=== PATIENT | male | born 1965 | race Caucasian/White ===

== ENCOUNTER 2020-03-27 15:17 | Outpatient (CLI) | payer OTHER, SELFPAY ==
--- NOTE | ~2020-03-27 | XR_ITS ---
XR shoulder LT min 2V 03/27/2020 15:46 Indication: Left shoulder pain after recent injury Procedure: 4 views left shoulder Comparison: No prior studies for comparison. Findings: There is mild osteoarthritis of the acromioclavicular and glenohumeral joints. No fracture or traumatic malalignment. No focal soft tissue abnormality. No foreign bodies. Impression: 1: Mild polyarticular osteoarthritis of the left shoulder. Reviewed, dictated and finalized at location A. Impression: 1: Mild polyarticular osteoarthritis of the left shoulder.
== END 2020-03-27 15:18 | disposition home or self-care (01) ==
PROVIDERS: PCP Family Medicine; Visit Provider Family Medicine
DX: M19.012 Primary osteoarthritis, left shoulder (principal)
CPT/HCPCS: 73030

== ENCOUNTER 2020-05-07 14:37 | Outpatient (CLI) | payer OTHER, SELFPAY ==
--- NOTE | ~2020-05-07 | MR_ITS ---
EXAMINATION: MR shoulder LT wo con DATE: 05/07/2020 15:15 INDICATION: Left shoulder pain TECHNIQUE: Magnetic resonance imaging (MRI) of the left shoulder was performed without intravenous co ntrast. Sequences included axial PD-weighted FS FSE, coronal oblique PD-weighted FS FSE, coronal obli que T2-weighted FS FSE, sagittal PD-weighted FS FSE, and sagittal T1-weighted SE. COMPARISON: Left shoulder radiographs dated 03/27/2020 FINDINGS: Coracoacromial arch: The acromion undersurface is curved in morphology (type II) with lateral downsloping and small bruce inferior subacromial spur. The coracoacromial ligament is normal. Moderate acromioclavicular osteoart hritis with inferior directed osteophytes which remain separate from the underlying supraspinatus mus hitesh and tendon by a thin intervening fat pad. Rotator cuff: Mild supraspinatus tendinopathy with small full-thickness tear beginning at the superior facet footpl ate which measures 8 mm AP and approximately 1.5 cm medial to lateral. Mild infraspinatus tendinopath y without discrete tear. The teres minor tendon is normal. Mild tendinopathy at the cephalad aspect o f the subscapularis tendon with tiny partial-thickness intrasubstance tear along the cephalad aspect of the lesser tuberosity footplate. Normal rotator cuff muscle bulk and signal. Biceps tendon, glenoid labrum and glenohumeral cartilage: Mild tendinopathy and longitudinal split tearing of the intra-articular and extra articular long head biceps tendon. There is likely degenerative tearing along the peripheral free edge of the 10:00-11:0 0 position of the posterior superior glenoid labrum. Glenohumeral cartilage is normal. Fluid: Physiologic amount of fluid in the glenohumeral joint space. No intra-articular loose osteochondral b odies. Moderate amount of fluid in the subacromial/subdeltoid and subcoracoid bursae likely represent ing extension of fluid from the glenohumeral joint space through the full-thickness rotator cuff tear although differential would include bursitis. Fluid in the long head biceps tendon sheath which coul d be related to bicipital tenosynovitis. Bones: Bone alignment is normal. No fracture or pathologic marrow replacing process. Likely degenerative mil d cystic change at the junction middle and posterior facets of the greater tuberosity. IMPRESSION: 1. Mild tendinopathy of the subscapularis, supraspinatus and infraspinatus tendons with small full-th ickness tear at the distal supraspinatus tendon. 2. Mild degenerative tearing along the free edge of the posterior superior glenoid labrum. 3. Mild bicipital tendinopathy with longitudinal split tearing possible associated mild tenosynovitis . 4. Moderate acromioclavicular osteoarthritis. 5. Moderate amount of fluid in the subacromial/subdeltoid and subcoracoid bursae most likely decompre ssion glenohumeral joint fluid through the full-thickness rotator cuff tear although differential wou ld include bursitis. Reviewed, dictated and finalized at location A. IMPRESSION: 1. Mild tendinopathy of the subscapularis, supraspinatus and infraspinatus tend ons with small full-thickness tear at the distal supraspinatus tendon. 2. Mild degenerative tearing along the free edge of the posterior superior jasmin oid labrum. 3. Mild bicipital tendinopathy with longitudinal split tearing possible associa kwaku mild tenosynovitis. 4. Moderate acromioclavicular osteoarthritis. 5. Moderate amount of fluid in the subacromial/subdeltoid and subcoracoid bursa e most likely decompression glenohumeral joint fluid through the full-thickness rotator cuff tear although differential would include bursitis.
== END 2020-05-07 14:38 ==
PROVIDERS: PCP Family Medicine; Visit Provider Nurse Practitioner Family
DX: M19.012 Primary osteoarthritis, left shoulder (principal); M75.21 Bicipital tendinitis, right shoulder
CPT/HCPCS: 73221

== ENCOUNTER 2020-06-18 14:32 | Outpatient (CLI) | payer OTHER, SELFPAY ==
--- NOTE | 2020-06-18 14:35 | ECG_ITS ---
Measurements Intervals [place] Rate: 67 P: 42 MS: 167 QRS: 37 QRSD: 109 T: 33 QT: 379 QTc: 401 Interpretive Statements SINUS RHYTHM NORMAL ECG Electronically Signed On 06-18-2020 15:11:14 CDT by Mj Alcazar D.O.
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
== END 2020-06-18 14:33 | disposition home or self-care (01) ==
LOC: ANHSURGERY 14:35
PROVIDERS: PCP Family Medicine; Visit Provider Orthopaedic Surgery
DX: I10 Essential (primary) hypertension (principal)
CPT/HCPCS: 93005

== ENCOUNTER 2020-06-23 00:17 | Outpatient (CLI) | payer OTHER, SELFPAY ==
[2020-06-23 19:34] LABS: SARS-CoV-2 RNA PCR Negative
== END 2020-06-23 00:18 | disposition home or self-care (01) ==
LOC: ANHCOVIDDT 00:18
PROVIDERS: PCP Family Medicine; Visit Provider Orthopaedic Surgery
DX: Z01.812 Encounter for preprocedural laboratory examination (principal); Z20.828 Contact with and (suspected) exposure to other viral communicable diseases
CPT/HCPCS: 87635; C9803; U0003

== ENCOUNTER 2020-06-25 02:06 | Day surgery (SDC) | payer OTHER, SELFPAY ==
[2020-06-16 13:18] VITALS: BMI 27.0
[2020-06-25] VITALS (8 sets, daily range): BP systolic 140–165; BP diastolic 83–99; PULSE 63–87; RESP 14–16; TEMP 36.3–36.6; O2SAT 94–100
--- NOTE | 2020-06-25 07:27 | WPDHPUPDATE1 ---
History and Physical Update Update Date/Time: 06/25/20 07:27 History and Physical has been reviewed, including an updated exam of the patient. There are NO changes in the patient's condition. Risks, benefits, and alternatives have been discussed and questions answered. Patient agrees to proceed with procedure.
[2020-06-25] MEDS: CELECOXIB 200 MG CAPSULE PO (09:10)
[2020-06-25] MEDS: ACETAMINOPHEN 500 MG TABLET 1000 MG PO (09:10)
[2020-06-25] MEDS: LACTATED RINGERS 1,000 ML 30 ML IV CONT ×2 (09:40→12:54)
--- NOTE | 2020-06-25 10:16 | WPDANESEPP ---
[facility] - Eval Pre Procedure Procedure: Operation Date: 06/25/20 10:30 Proposed Procedures p Left Open Rotator Cuff Repair With Distal Clavicle Excision - Juice Anderson MD Date/Time: 06/25/20 10:16 Pre Op Diagnosis: Acute Left Rotator Cuff Tear,L Should AC Marely MAYORGA Patient Data Age: 55 Gender: M Height: 6 ft 1 in Weight: 91.5 kg Last Vital Signs Temp 97.8 F 06/25/20 08:56 Pulse 63 06/25/20 08:56 Resp 14 06/25/20 08:56 BP 140/83 06/25/20 08:56 Pulse Ox 98 06/25/20 08:56 Allergies Allergy/AdvReac Type Severity Reaction Status Date / Time shellfish derived Allergy Severe REDNESS, Verified 06/25/20 09:06 THROAT TIGHTNESS Home Medications Medication Instructions Recorded Confirmed Type omeprazole magnesium 20 mg 20 mg PO DAILY 03/27/20 06/25/20 History tablet,delayed release lisinopril 20 mg tablet 20 mg PO DAILY #30 tablet 05/16/20 06/25/20 Rx chlorhexidine gluconate 4 % 1 applic TOPICAL ONCE #237 ml 05/20/20 06/25/20 Rx topical liquid sertraline 50 mg tablet 75 mg PO DAILY #45 tablet 05/30/20 06/25/20 Rx aspirin 81 mg PO DAILY 06/16/20 06/25/20 History Patient hx anesthesia problems: none Family hx anesthesia problems: none PMFSH Past Medical History Medical History Anxiety and depression Asthma Benign essential HTN Calcium nephrolithiasis Cervical spondylosis Elevated BP without diagnosis of hypertension GERD (gastroesophageal reflux disease) Injury of left shoulder Marijuana abuse MDD (major depressive disorder), recurrent episode, moderate Rotator cuff tear Shoulder pain, left Smoker Tendinopathy of left shoulder Surgical History Surgical History H/O hernia repair Hx of tonsillectomy Social History Social History Smoking packs per day: 1 Smoking cigarettes per day: 20.0 Years smoked: 20 Smoking pack-years: 20.00 Smoking status: Never smoker Tobacco type: cigarettes Second hand tobacco smoke exposure: No Smoking end date: 10/31/09 Alcohol intake: never Substance use: current Substance use type: marijuana Last use: 06/16/20 Additional living arrangements comments: pt lives with and children Gender identity (if verbalized by the patient): Male Spiritual care concerns: No Exam Day of Procedure 06/25/20 10:16 Patient weight: overweight Airway: Mallampati scale class II Neurological: alert and oriented Other findings: NSR VR 67
--- NOTE | 2020-06-25 10:27 | WPDANESEFPP ---
Anes - Eval Final PreProcedure Day of Procedure 06/25/20 10:27 Patient weight: overweight Heart: regular rate and rhythm Lungs: decreased breath sounds Airway: Mallampati scale class II Neurological: alert and oriented Last oral intake: >/= 8 hours ASA classification: III Emergent: no Anesthetic plan: proceed Anesthesia type and monitoring: general ETT and standard monitoring Informed Consent: The patient's anesthetic plan and its attendant risks and benefits were discussed with the patient/family/POA. Questions were solicited and answers provided to the satisfaction of the patient/family/POA.
[2020-06-25] MEDS: ceFAZolin 2 GM/D5W 50 ML 2 GM/50 ML BAG IVPB (10:39)
--- NOTE | 2020-06-25 10:42 | WPDANESPNB ---
Anes - Peripheral Nerve Block Date/Time: 06/25/20 10:42 I have discussed with the patient/family/POA the placement of a peripheral nerve block for post-operative pain management, including associated risks, benefits, complications, and side effects. Alternative methods of post-operative analgesia were detailed. Questions were solicited and answers provided to the satisfaction of the patient/family/POA. Time-Out: A pre-procedural Time-Out was completed immediately before starting the procedure and confirmed: Patient Identification, Site, Procedure, Patient Position and the Availability of Requisite Equipment. Clinical Indications: Acute post-operative pain management requested by the operative surgeon. Nerve Block Insertion Note Anes-nerve block: interscalene left Needle: 22 gauge, stimulating, insulated echogenic needle. Needle length: 50 mm Technique: nerve stimulation lost at (mA) (0.3) and ultrasound Technique comment: mid2mg [id number] Injectate: bupivacaine 0.5% with epi 5 mcg/ml (30ml) Observations: tolerated well Complications: none Procedure start time:: 1028 Procedure end time:: 1034
--- NOTE | 2020-06-25 12:39 | PM.OP ---
Procedure Note - Brief Procedure Note - Brief Date of procedure: 06/25/20 Pre-op diagnosis: Acute Left Rotator Cuff Tear,L Should AC Marely MAYORGA Post-op diagnosis: same Procedure performed: LEFT ROT CUFF REPAIR WITH DCE Anesthesia: GETA Surgeon: Juice Anderson MD Estimated blood loss (mL): 20 Complications: No immediate complications Condition: stable Disposition: PACU
--- NOTE | 2020-06-25 14:35 | SUR.PHASEII ---
PT ASSISTED WITH DRESSING. AWAITING RIDE.
--- NOTE | 2020-06-25 18:57 | OP_ITS ---
DATE OF PROCEDURE: 06/25/2020 PREOPERATIVE DIAGNOSES: Left rotator cuff tear and acromioclavicular joint degenerative joint disease. PREOPERATIVE DIAGNOSES: Left rotator cuff tear and acromioclavicular joint degenerative joint disease. PROCEDURE: Left rotator cuff repair with distal clavicle excision. ANESTHESIA: General. COMPLICATIONS: None. INDICATIONS: This is a 55-year-old male with severe pain to the left shoulder and weakness. He was diagnosed with a rotator cuff tear and AC joint DJD. He was indicated for left rotator cuff repair and distal clavicle excision. DESCRIPTION OF PROCEDURE: The patient was taken to the operating room in stable condition, placed in the supine position. General anesthesia was induced and he was placed in beach chair position. The left upper extremity was prepped and draped sterilely from the fingers to the axillary and cervical region. Incision was made in between the anterolateral acromion and the AC joint down through the subcutaneous tissues. The AC joint was identified and the capsule was incised. There was severe arthrosis to the AC joint. 0.5 cm of distal clavicle then was removed from the AC joint. Osteophytes were removed from the undersurface of the AC joint as well. The wound was irrigated thoroughly and the capsule was approximated with #0 Vicryl suture. Next, the incision continued through a mini open incision through the deltoid muscle entering the subacromial space. There was clear fluid coming from the subacromial space and there was an obvious tear to the rotator cuff. The tear was large measuring approximately greater than a centimeter in the AP plane, but it was not retracted. The cuff tear was debrided, the greater tuberosity was debrided and then 2 Arthrex 5.5 suture anchors were placed in the greater tuberosity and the tear was then repaired. The repair was excellent and was very stable. The wound was irrigated thoroughly and then the deltoid muscle was repaired with #2 nonabsorbable type suture and then with 0 Vicryl as well. The subcutaneous tissues were approximated with 2-0 Vicryl and then a 3-0 Quill was used to approximate the subcuticular region. Dermabond was placed, Steri-Strips and a sterile dressing was applied. The patient was placed in a shoulder immobilizer, and he was extubated and sent to recovery. D I MT: Sofia
== END 2020-06-25 14:48 | disposition home or self-care (01) ==
PROVIDERS: PCP Family Medicine; Visit Provider Orthopaedic Surgery
PROC: (CPT 23420; principal; 2020-06-25 10:30)
DX: S46.012A Strain of muscle(s) and tendon(s) of the rotator cuff of left shoulder, initial encounter (principal); M19.012 Primary osteoarthritis, left shoulder; G89.18 Other acute postprocedural pain; I10 Essential (primary) hypertension; F32.9 Major depressive disorder, single episode, unspecified; F17.210 Nicotine dependence, cigarettes, uncomplicated; Z79.82 Long term (current) use of aspirin; Z79.899 Other long term (current) drug therapy; V19.3XXA Pedal cyclist (driver) (passenger) injured in unspecified nontraffic accident, initial encounter; Y93.55 Activity, bike riding
CPT/HCPCS: 23410; 23120; 64415; A9270; C1713; J0690; J1100; J1170; J2250; J2405; J2704; J3010; J7120

== ENCOUNTER 2020-10-10 02:15 | Outpatient (CLI) | payer OTHER, SELFPAY ==
[2020-10-10 18:46] LABS: SARS-CoV-2 RNA PCR Negative
== END 2020-10-10 02:16 | disposition home or self-care (01) ==
LOC: ANHCOVIDDT 02:15
PROVIDERS: PCP Family Medicine; Visit Provider Internal Medicine Gastroenterology
DX: Z01.818 Encounter for other preprocedural examination (principal); Z20.828 Contact with and (suspected) exposure to other viral communicable diseases
CPT/HCPCS: 87635; C9803; U0003

== ENCOUNTER 2020-10-13 01:20 | Day surgery (SDC) | payer OTHER, SELFPAY ==
[2020-10-08 13:30] VITALS: BMI 26.0
[2020-10-13 07:13] VITALS: BP 143/89; PULSE 58; RESP 20; TEMP 36.3; O2SAT 96; BMI 26.3
[2020-10-13] MEDS: LACTATED RINGERS 1,000 ML 150 ML IV CONT (07:26)
--- NOTE | 2020-10-13 07:37 | WPDANESEPPF ---
Anes - Initial Pre Proc Eval Procedure: Operation Date: 10/13/20 08:30 Proposed Procedures p Screening Colonoscopy - Asif Patterson MD Date/Time: 10/13/20 07:37 Surgeon: Asif Patterson MD Pre Op Diagnosis: Neoplasm Screening Patient Data Age: 55 Gender: M Height: 6 ft 2 in Weight: 93.1 kg Last Vital Signs Temp 36.3 C L 10/13/20 07:13 Pulse 58 L 10/13/20 07:13 Resp 20 10/13/20 07:13 BP 143/89 H 10/13/20 07:13 Pulse Ox 96 10/13/20 07:13 Allergies Allergy/AdvReac Type Severity Reaction Status Date / Time shellfish derived Allergy Severe REDNESS, Verified 10/13/20 07:12 THROAT TIGHTNESS Home Medications Medication Instructions Recorded Confirmed Type omeprazole magnesium 20 mg 20 mg PO DAILY 03/27/20 10/08/20 History tablet,delayed release lisinopril 20 mg tablet 20 mg PO DAILY #90 tablet 08/03/20 10/08/20 Rx sertraline 50 mg tablet 75 mg PO DAILY #45 tablet 09/05/20 10/08/20 Rx Patient hx anesthesia problems: none Family hx anesthesia problems: none PMFSH Past Medical History Medical History Anxiety Anxiety and depression Arthritis Asthma Benign essential HTN Calcium nephrolithiasis Cervical spondylosis Chronic headaches Depression Elevated BP without diagnosis of hypertension Food allergy GERD (gastroesophageal reflux disease) High cholesterol Hypertension Injury of left shoulder Latex allergy Marijuana abuse MDD (major depressive disorder), recurrent episode, moderate Rotator cuff tear Seasonal allergies Shoulder pain, left Smoker Tendinopathy of left shoulder Vision abnormalities Surgical History Surgical History H/O hernia repair Hx of tonsillectomy Social History Social History Social History: Smoking packs per day: 1 Smoking cigarettes per day: 20.0 Years smoked: 20 Smoking pack-years: 20.00 Smoking status: Former smoker Tobacco type: cigarettes Second hand tobacco smoke exposure: No Smoking end date: 10/31/09 Alcohol intake: never Substance use: current Substance use type: does not use Last use: 06/16/20 Living arrangements: with family Additional living arrangements comments: pt lives with and children Gender identity (if verbalized by the patient): Male Spiritual care concerns: No Anes - Eval Final PreProcedure Day of Procedure 10/13/20 07:37 Patient weight: overweight Heart: regular rate and rhythm Lungs: clear to auscultation Airway: Mallampati scale class II Neurological: alert and oriented Last oral intake: >/= 8 hours ASA classification: III Emergent: no Anesthetic plan: proceed Anesthesia type and monitoring: general GIVS and standard monitoring Informed Consent: The patient's anesthetic plan and its attendant risks and benefits were discussed with the patient/family/POA. Questions were solicited and answers provided to the satisfaction of the patient/family/POA.
--- NOTE | 2020-10-13 08:42 | PM.HPGS ---
History of Present Illness History of Present Illness Consent: Risks, benefits, and alternatives have been discussed and questions answered. Patient agrees to proceed with procedure. Chief complaint: Neoplasm Screening Narrative: Morris Todd is a 55 year old male here for first screening colonoscopy Review of Systems Constitutional: Constitutional: Denies headache(s) and Denies weakness Eyes: Eyes: Denies blurry vision ENT: Reports Normal hearing present, Denies headache(s) and Denies neck pain Cardiovascular: Cardiovascular: Denies chest pain and Denies dyspnea Respiratory: Respiratory: Denies dyspnea Gastrointestinal: Gastrointestinal: Reports no additional gastrointestinal complaints Genitourinary: Genitourinary: Denies dysuria Musculoskeletal: Musculoskeletal: Denies neck pain Integumentary/Breasts: Skin/Breast: Denies dry skin Neurologic: Reports Normal hearing present, Denies headache(s) and Denies weakness Psychiatric: Psychiatric: Denies anxiety Endocrine: Endocrine: Denies change in body appearance Hematologic/Lymphatic: Hematologic/Lymphatic: Denies easy bleeding Allergic/Immunologic: Allergic/Immunologic: Denies urticaria PMFSH Past Medical History Medical History Anxiety Anxiety and depression Arthritis Asthma Benign essential HTN Calcium nephrolithiasis Cervical spondylosis Chronic headaches Depression Elevated BP without diagnosis of hypertension Food allergy GERD (gastroesophageal reflux disease) High cholesterol Hypertension Injury of left shoulder Latex allergy Marijuana abuse MDD (major depressive disorder), recurrent episode, moderate Rotator cuff tear Seasonal allergies Shoulder pain, left Smoker Tendinopathy of left shoulder Vision abnormalities Surgical History Surgical History H/O hernia repair Hx of tonsillectomy Social History Social History Social History: Smoking packs per day: 1 Smoking cigarettes per day: 20.0 Years smoked: 20 Smoking pack-years: 20.00 Smoking status: Former smoker Tobacco type: cigarettes Second hand tobacco smoke exposure: No Smoking end date: 10/31/09 Alcohol intake: never Substance use: current Substance use type: does not use Last use: 06/16/20 Living arrangements: with family Additional living arrangements comments: pt lives with and children Gender identity (if verbalized by the patient): Male Spiritual care concerns: No Meds Home Medications and Allergies Home Medications Medication Instructions Recorded Confirmed Type omeprazole magnesium 20 mg 20 mg PO DAILY 03/27/20 10/08/20 History tablet,delayed release lisinopril 20 mg tablet 20 mg PO DAILY #90 tablet 08/03/20 10/08/20 Rx sertraline 50 mg tablet 75 mg PO DAILY #45 tablet 09/05/20 10/08/20 Rx Allergies Allergy/AdvReac Type Severity Reaction Status Date / Time shellfish derived Allergy Severe REDNESS, Verified 10/13/20 07:12 THROAT TIGHTNESS Vital Signs Vital Signs - 24 hr 10/13/20 07:13 Temperature 97.3 F L Pulse Rate 58 L Respiratory Rate 20 Blood Pressure 143/89 H Pulse Oximetry 96 Exam Const: General: comfortable and no acute distress HENMT: General nose exam: Normal nares present Eyes: General: appearance normal, both eyes and all related structures Neck: Neck: no JVD Resp: Auscultation: clear to auscultation bilaterally Cardio: Rate: regular rate Rhythm: regular rhythm GI: Inspection: non-distended GI Palp: Yes Soft to palpation Skin: General skin exam: normal color Neuro: General: gait normal Speech: normal speech Extrem: General: normal to inspection Psych: Mental Status: mental status grossly normal Assessment and Plan Assessment and plan (1) Colon cancer screening: Code
[2020-10-13 09:11] VITALS: BP 124/73; PULSE 57; RESP 20; O2SAT 97
[2020-10-13 09:21] VITALS: BP 123/80; PULSE 53; RESP 13; O2SAT 98
[2020-10-13 09:31] VITALS: BP 158/83; PULSE 52; RESP 19; O2SAT 99
== END 2020-10-13 09:35 | disposition home or self-care (01) ==
PROVIDERS: PCP Family Medicine; Visit Provider Internal Medicine Gastroenterology
PROC: 0DJD8ZZ Inspection of Lower Intestinal Tract, Via Natural or Artificial Opening Endoscopic (ICD-10-PCS; CPT 45378; principal; 2020-10-13 08:30)
DX: Z12.11 Encounter for screening for malignant neoplasm of colon (principal); D12.0 Benign neoplasm of cecum; K57.30 Diverticulosis of large intestine without perforation or abscess without bleeding; F41.8 Other specified anxiety disorders; J45.909 Unspecified asthma, uncomplicated; I10 Essential (primary) hypertension; F32.9 Major depressive disorder, single episode, unspecified; K21.9 Gastro-esophageal reflux disease without esophagitis; E78.00 Pure hypercholesterolemia, unspecified; Z87.891 Personal history of nicotine dependence; Z87.442 Personal history of urinary calculi; K64.8 Other hemorrhoids
CPT/HCPCS: 45385; 88305; J2704; J7120

== ENCOUNTER 2021-03-25 13:34 | Outpatient (CLI) | payer OTHER, SELFPAY ==
[2021-03-25 14:22] LABS: Basophils Percent Auto 0.5 % (0.2-1.2); Eosinophils Absolute Auto 0.2 K/mm3 (0-0.3); Eosinophils Percent Auto 3.5 % (0-4.4); Hematocrit 45.5 % (42.0-52.0); Immature Granulocyte Absolute 0.01 K/mm3 (0.00-0.031); Immature Granulocyte Percent A 0.2 % (0-0.5); Lymphocytes Absolute Auto 2.11 K/mm3 (0.9-3.2); Lymphocytes Percent Auto 36.8 % (18.3-44.2); Mean Corpuscular Hemoglobin 29.8 pg (26-34); Mean Corpuscular Volume 90.3 fl (80-100); Mean Platelet Volume 9.4 fl (7.4-10.4); Monocytes Absolute Auto 0.3 K/mm3 (0.1-0.6); Monocytes Percent Auto 5.9 % (2.6-8.5); Neutrophils Percent Auto 53.1 % (45.5-73.1); Platelet Count Result 259 k/mm3 (150-375); Red Blood Count 5.04 M/mm3 (4.6-6.20); Red Cell Distribution Width 12.6 % (11.5-14.5); White Blood Count 5.7 K/mm3 (4.5-10.0)
[2021-03-25 14:37] LABS: Alanine Aminotransferase 24 U/L (4-50); Albumin Level 4.6 g/dL (3.5-5.1); Alkaline Phosphatase 80 U/L (38-126); Anion Gap 7 mmol/L (8-16); Aspartate Amino Transferase 28 U/L (17-59); Bilirubin,Total 0.7 mg/dL (0.2-1.3); Blood Urea Nitrogen 15 mg/dL (9-20); Calcium 9.8 mg/dL (8.4-10.2); Carbon Dioxide 30 mmol/L (22-30); Chloride 106 mmol/L (98-107); Cholesterol 246 mg/dL (0-200); Estimated Glomerular Filt Rate 58; Glucose 101 mg/dL (75-110); HDL Direct 43 mg/dL; Potassium 4.1 mmol/L (3.4-5.0); Sodium 143 mmol/L (137-145); Triglycerides 142 mg/dL (<150)
[2021-03-25 14:48] LABS: LDL Cholesterol Direct 149 mg/dL
== END 2021-03-25 13:35 | disposition home or self-care (01) ==
LOC: ANHLAB 13:36
PROVIDERS: PCP Family Medicine; Visit Provider Physician Assistant
DX: F33.1 Major depressive disorder, recurrent, moderate (principal); I10 Essential (primary) hypertension; E78.2 Mixed hyperlipidemia
CPT/HCPCS: 36415; 80053; 80061; 84443; 85025

== ENCOUNTER 2021-06-30 10:36 | Outpatient (CLI) | payer OTHER, SELFPAY ==
[2021-06-30 11:24] LABS: Alanine Aminotransferase 40 U/L (4-50); Aspartate Amino Transferase 55 U/L (17-59)
== END 2021-06-30 10:37 | disposition home or self-care (01) ==
PROVIDERS: PCP Family Medicine; Visit Provider Family Medicine
DX: Z79.899 Other long term (current) drug therapy (principal)
CPT/HCPCS: 36415; 84450; 84460

== ENCOUNTER → 2021-08-13 02:48 | Outpatient (CLI) | payer OTHER, SELFPAY ==
[2021-08-13 18:09] LABS: SARS-CoV-2 RNA PCR Negative
== END ==
PROVIDERS: PCP Family Medicine; Visit Provider Family Medicine
DX: R68.89 Other general symptoms and signs (principal); Z20.822 Contact with and (suspected) exposure to COVID-19
CPT/HCPCS: C9803; U0003; U0005

== ENCOUNTER 2021-08-31 15:03 | Outpatient (CLI) | payer OTHER, SELFPAY ==
--- NOTE | ~2021-08-31 | XR_ITS ---
XR shoulder RT min 2V DATE: 08/31/2021 15:20 INDICATION: Left injuring of right shoulder today. Pain at acromioclavicular joint TECHNIQUE: 5 views COMPARISON: None FINDINGS: No fracture or dislocation, periosteal reaction or bone destruction. Mild degenerative johnston ge at the right acromioclavicular joint. No abnormal soft tissue calcification. IMPRESSION: Mild degenerative change at the right acromioclavicular joint Reviewed, dictated and finalized at location A.
== END 2021-08-31 15:04 | disposition home or self-care (01) ==
LOC: ANHIMG 15:05
PROVIDERS: PCP Family Medicine; Visit Provider Physician Assistant
DX: M19.011 Primary osteoarthritis, right shoulder (principal)
CPT/HCPCS: 73030

== ENCOUNTER 2021-09-19 13:46 | Outpatient (CLI) | payer OTHER, SELFPAY ==
--- NOTE | ~2021-09-19 | MR_ITS ---
EXAMINATION: MR shoulder RT wo con DATE: 09/19/2021 14:33 INDICATION: Unspecified disorder of synovium and tendon, right shoulder. Right rotator cuff tendinopa thy. Right shoulder pain. TECHNIQUE: Magnetic resonance imaging (MRI) of the right shoulder was performed without intravenous c ontrast. Sequences included axial PD-weighted FS FSE, coronal oblique PD-weighted FS FSE and T2-weigh kwaku FS FSE, and sagittal oblique T2-weighted FS FSE and T1-weighted FSE. COMPARISON: Right shoulder radiographs 08/31/2021 FINDINGS: Coracoacromial arch: The acromion undersurface is curved in morphology (type II). There is moderate acromioclavicular join t osteoarthritis including inferiorly directed osteophytes. There is moderate subacromial/subdeltoid bursitis. Rotator cuff: There is a full-thickness tear involving supraspinatus and anterior infraspinatus tendons measuring 6 mm anterior to posterior by 20 mm proximal to distal. Teres minor tendon is normal. There is moderat e subscapularis tendinopathy. There is a degenerative cyst in the lesser tuberosity. There is no asym metric fatty atrophy rotator cuff muscle bellies. Biceps tendon and glenoid labrum: Biceps tendon is in bicipital groove. There is mild intra-articular biceps tendinopathy. The glenoid labrum is intact. Fluid: There is a small glenohumeral joint effusion. Bones/cartilage: There is cartilage surface irregularity of glenoid and humeral head. There is an osteophyte of ada l head. IMPRESSION: 1. Full-thickness rotator cuff tear. 2. Mild glenohumeral joint chondrosis. 3. Moderate acromioclavicular joint osteoarthritis. 4. Mild intra-articular biceps tendinopathy. 5. Small glenohumeral joint effusion and moderate subacromial/subdeltoid bursitis. Reviewed, dictated and finalized at location B. [employer] IMPRESSION: 1. Full-thickness rotator cuff tear. 2. Mild glenohumeral joint chondrosis. 3. Moderate acromioclavicular joint osteoarthritis. 4. Mild intra-articular biceps tendinopathy. 5. Small glenohumeral joint effusion and moderate subacromial/subdeltoid bursit is.
== END 2021-09-19 13:47 | disposition home or self-care (01) ==
LOC: ANHIMG 13:53
PROVIDERS: PCP Family Medicine; Visit Provider Physician Assistant
DX: M75.101 Unspecified rotator cuff tear or rupture of right shoulder, not specified as traumatic (principal); M19.011 Primary osteoarthritis, right shoulder; M25.411 Effusion, right shoulder
CPT/HCPCS: 73221

== ENCOUNTER 2021-11-25 08:33 | Outpatient (CLI) | payer OTHER, SELFPAY ==
--- NOTE | ~2021-11-25 | MR_ITS ---
EXAMINATION: MR shoulder LT wo con DATE: 11/25/2021 09:55 INDICATION: Left shoulder pain. Brachial plexus disorder. TECHNIQUE: Magnetic resonance imaging (MRI) of the left shoulder was performed without intravenous co ntrast. Sequences included axial PD-weighted FS FSE, coronal oblique PD-weighted FS FSE and T2-weight ed FS FSE, and sagittal oblique T2-weighted FS FSE and T1-weighted FSE. COMPARISON: Left shoulder MRI 05/07/2020, radiograph 03/27/2020 FINDINGS: Coracoacromial arch: The acromion undersurface is curved in morphology (type II). There are changes of distal clavicle res ection. There is mild subacromial/subdeltoid bursitis. Rotator cuff: There is severe supraspinatus and infraspinatus tendinopathy. There are changes of rotator cuff repai r. Teres minor tendon is normal. There is mild subscapularis tendinopathy. There is mild fatty atroph y of supraspinatus and infraspinatus muscles. Biceps tendon and glenoid labrum: Biceps tendon is in bicipital groove. There is mild intra-articular biceps tendinopathy. The glenoid labrum is normal. Fluid: There is no glenohumeral joint effusion. Bones/cartilage: There is cartilage surface irregularity of glenoid and humeral head. IMPRESSION: 1. Severe rotator cuff tendinopathy with changes of rotator cuff repair. No recurrent tear. 2. Mild glenohumeral joint chondrosis. 3. Mild subacromial/subdeltoid bursitis. 4. Mild intra-articular biceps tendinopathy. Reviewed, dictated and finalized at location A. [employer] MECH[employer]IC IMPRESSION: 1. Severe rotator cuff tendinopathy with changes of rotator cuff repair. No rec urrent tear. 2. Mild glenohumeral joint chondrosis. 3. Mild subacromial/subdeltoid bursitis. 4. Mild intra-articular biceps tendinopathy.
== END 2021-11-25 08:34 | disposition home or self-care (01) ==
LOC: ANHIMG 08:35
PROVIDERS: PCP Family Medicine; Visit Provider Family Medicine
DX: G54.0 Brachial plexus disorders (principal); M75.52 Bursitis of left shoulder
CPT/HCPCS: 73221

== ENCOUNTER 2023-07-08 15:39 | Outpatient (CLI) | payer OTHER, SELFPAY ==
[2023-07-08 16:44] LABS: Basophils Percent Auto 0.6 % (0.2-1.2); Eosinophils Absolute Auto 0.2 K/mm3 (0-0.3); Eosinophils Percent Auto 3.2 % (0-4.4); Hematocrit 43.6 % (42.0-52.0); Hemoglobin 14.8 g/dL (14.0-18.0); Immature Granulocyte Absolute 0.01 K/mm3 (0.00-0.031); Immature Granulocyte Percent A 0.1 % (0-0.5); Lymphocytes Absolute Auto 3.13 K/mm3 (0.9-3.2); Lymphocytes Percent Auto 44.1 % (18.3-44.2); Mean Corpuscular HGB Conc 33.9 g/dl (32-36); Mean Corpuscular Hemoglobin 31.8 pg (26-34); Mean Corpuscular Volume 93.6 fl (80-100); Mean Platelet Volume 9.3 fl (7.4-10.4); Monocytes Absolute Auto 0.5 K/mm3 (0.1-0.6); Monocytes Percent Auto 6.6 % (2.6-8.5); Neutrophils Absolute Auto 3.2 K/mm3 (1.3-6.7); Neutrophils Percent Auto 45.4 % (45.5-73.1); Platelet Count Result 224 k/mm3 (150-375); Red Blood Count 4.66 M/mm3 (4.6-6.20); Red Cell Distribution Width 12.5 % (11.5-14.5); White Blood Count 7.1 K/mm3 (4.5-10.0)
[2023-07-08 16:59] LABS: Alanine Aminotransferase 53 U/L (6-50); Albumin Level 4.7 g/dL (3.5-5.1); Alkaline Phosphatase 72 U/L (38-126); Anion Gap 7 mmol/L (8-16); Aspartate Amino Transferase 59 U/L (17-59); Bilirubin,Total 0.5 mg/dL (0.2-1.3); Blood Urea Nitrogen 13 mg/dL (9-20); Calcium 9.3 mg/dL (8.4-10.2); Carbon Dioxide 31 mmol/L (22-30); Chloride 102 mmol/L (98-107); Cholesterol 230 mg/dL (0-200); Estimated Glomerular Filt Rate > 60; Glucose 84 mg/dL (65-110); HDL Direct 52 mg/dL; Potassium 3.6 mmol/L (3.4-5.0); Sodium 140 mmol/L (137-145); Triglycerides 242 mg/dL (<150)
[2023-07-08 17:10] LABS: LDL Cholesterol Direct 118 mg/dL
== END 2023-07-08 15:40 | disposition home or self-care (01) ==
PROVIDERS: PCP Family Medicine; Visit Provider Family Medicine
DX: E78.2 Mixed hyperlipidemia (principal); I10 Essential (primary) hypertension
CPT/HCPCS: 36415; 80053; 80061; 85025

== ENCOUNTER 2024-01-19 12:36 | Outpatient (CLI) | payer OTHER, SELFPAY ==
[2024-01-19 14:27] LABS: Alanine Aminotransferase 41 U/L (6-50); Albumin Level 4.6 g/dL (3.5-5.1); Alkaline Phosphatase 71 U/L (38-126); Anion Gap 5 mmol/L (8-16); Aspartate Amino Transferase 39 U/L (17-59); Bilirubin,Total 1.1 mg/dL (0.2-1.3); Blood Urea Nitrogen 19 mg/dL (9-20); Calcium 9.8 mg/dL (8.4-10.2); Carbon Dioxide 28 mmol/L (22-30); Chloride 107 mmol/L (98-107); Cholesterol 190 mg/dL (0-200); Estimated Glomerular Filt Rate > 60; Glucose 88 mg/dL (65-110); HDL Direct 45 mg/dL; Potassium 3.9 mmol/L (3.4-5.0); Sodium 140 mmol/L (137-145); Triglycerides 103 mg/dL (<150)
[2024-01-19 14:38] LABS: LDL Cholesterol Direct 116 mg/dL
== END 2024-01-19 12:37 | disposition home or self-care (01) ==
PROVIDERS: PCP Family Medicine; Visit Provider Physician Assistant
DX: E78.2 Mixed hyperlipidemia (principal); I10 Essential (primary) hypertension
CPT/HCPCS: 36415; 80053; 80061